=== PATIENT | male | born 1990 | race Caucasian/White ===

== ENCOUNTER → 2023-03-10 11:54 | Outpatient (CLI) | payer OTHER, MEDICAID, SELFPAY ==
[2023-03-10 20:23] LABS: Hepatitis B Surface Antigen NEGATIVE s/c (NEGATIVE)
[2023-03-10 20:39] LABS: HIV 1 & 2 Ab/Ag 4th Gen Combo NEGATIVE (NEGATIVE); Hep C Virus Ab w/Reflex Quant NEGATIVE s/c (NEGATIVE)
[2023-03-10 21:27] LABS: Urine N gonorrhoeae NOT DETECTED
[2023-03-10 21:32] LABS: Urine Chlamydia NOT DETECTED
[2023-03-13 08:51] LABS: HSV 2 IGG AB < 0.91 index (0.00-0.90); HSV1IGG < 0.91 index (0.00-0.90); RPR Screen Non Reactive (Non Reactive)
== END ==
PROVIDERS: PCP Physician Assistant; Visit Provider Physician Assistant
DX: L29.3 Anogenital pruritus, unspecified (principal); Z11.3 Encounter for screening for infections with a predominantly sexual mode of transmission
CPT/HCPCS: 86592; 86695; 86696; 86803; 87340; 87389; 87491; 87591

== ENCOUNTER → 2023-08-16 15:13 | Outpatient (CLI) | payer OTHER, SELFPAY ==
[2023-08-16 19:54] LABS: Alanine Aminotransferase 41 IU/L (<50); Albumin 4.4 g/dL (3.5-5.0); Albumin Globulin Ratio 1.4 (1.0-2.8); Alkaline Phosphatase 49 U/L (38-126); Aspartate Aminotransferase 37 IU/L (17-59); BUN Creatinine Ratio 14.2 (6-22); Bilirubin Total 0.6 mg/dL (0.2-1.3); Blood Urea Nitrogen 16 mg/dL (9-20); Calcium 9.6 mg/dL (8.4-10.2); Carbon Dioxide 27 mmol/L (22-32); Chloride 100 mmol/L (98-107); Estimated Glomerular Filt Rate > 60 mL/min (>60); Globulin 3.1 g/dL (1.7-4.1); Glucose 83 mg/dL (70-100); HEMOLYSIS < 15 (0-50); Potassium 4.2 mmol/L (3.4-5.1); Sodium 137 mmol/L (137-145); Total Protein 7.5 g/dL (6.3-8.2)
[2023-08-16 19:55] LABS: Add Manual Diff / Slide Review NO; Basophils Absolute Auto 0 /uL (0-100); Basophils Percent Auto 0.4 % (0-2); Eosinophils Absolute Auto 200 /uL (0-450); Eosinophils Percent Auto 2.8 % (2-4); Hematocrit 46.7 % (41-53); Lymphocytes Absolute Auto 1700 /uL (1100-4500); Lymphocytes Percent Auto 28.8 % (25-40); Mean Corpuscular HGB Conc 34.2 % (30-36); Mean Corpuscular Hemoglobin 30.2 PG (26-34); Mean Corpuscular Volume 88.1 fL (80-100); Monocytes Absolute Auto 400 /uL (0-900); Monocytes Percent Auto 7.5 % (3-14); Neutrophils Absolute Auto 3600 /uL (1500-7000); Neutrophils Percent Auto 60.5 % (50-75); Platelet Count 248 X10^3/uL (150-400); Red Cell Distribution Width 14.2 % (11.6-14.8); White Blood Cell Count 5.9 X10^3/uL (4.5-11.0)
== END ==
PROVIDERS: PCP Family Medicine; Visit Provider Family Medicine
DX: R10.31 Right lower quadrant pain (principal)
CPT/HCPCS: 80053; 85025

== ENCOUNTER → 2023-08-18 | Outpatient (CLI) | payer OTHER, SELFPAY | PROVIDERS: PCP Family Medicine; Referring Provider Family Medicine; Visit Provider Family Medicine | DX: Z23 Encounter for immunization (principal) | CPT/HCPCS: 90471; 90686 ==

== ENCOUNTER → 2023-08-19 10:09 | Outpatient (CLI) | payer OTHER, SELFPAY ==
--- NOTE | 2023-08-19 10:10 | DI.CT.S_ITS ---
PROCEDURE: CT ABDOMEN PELVIS W CON INDICATIONS: RLQ pain for 2 weeks, worse for 2- 3 days TECHNIQUE: After the administration of intravenous contrast, axial sections acquired from the lung bases to the pubic symphysis. Coronal and sagittal reformats were performed. For radiation dose reduction, the following was used: automated exposure control, adjustment of mA and/or kV according to patient size. COMPARISON: None. FINDINGS: Image quality: Excellent. Lung bases: Unremarkable. Heart: No significant findings. ABDOMEN: Liver: 2.0 cm lesion in segment 4B with increased attenuation (series 2, image 21). Gallbladder: No radiopaque stones. Biliary ducts: Unremarkable. Pancreas: Unremarkable. Spleen: Unremarkable. Adrenal Glands: Unremarkable. Kidneys and Ureters: Punctate nonobstructing left-sided nephrolithiasis. No hydronephrosis. Stomach and Bowel: Appendix is unremarkable. Colonic diverticulosis without evidence of diverticulitis. Peritoneum: No abnormal intraperitoneal fluid. No free air. Ventral Wall: No hernias. Abdominal Nodes: No retroperitoneal or mesenteric adenopathy by size criteria. Vessels: Aorta and inferior vena cava are normal in size. PELVIS: Pelvic Organs: Unremarkable. Bladder: Unremarkable. Pelvic Nodes: No enlarged lymph nodes. Miscellaneous: No hernias are seen. Bones: Unremarkable. IMPRESSION: No acute findings to explain the patient's right lower quadrant pain. Normal appendix. Colonic diverticulosis without evidence of diverticulitis. Hyperattenuating right hepatic lesion measuring 2.0 cm. Differential includes hemangioma, vascular perfusion defect, or other solid lesions. Recommend dedicated MRI with contrast (liver mass protocol) for further characterization. Dictated by: Nate Fernandez M.D. on 08/19/2023 at 10:51 Approved by: Nate Fernandez M.D. on 08/19/2023 at 10:55
== END ==
PROVIDERS: PCP Family Medicine; Referring Provider Family Medicine; Visit Provider Family Medicine
DX: R10.31 Right lower quadrant pain (principal); K57.90 Diverticulosis of intestine, part unspecified, without perforation or abscess without bleeding; K76.9 Liver disease, unspecified
CPT/HCPCS: 74177; Q9967

== ENCOUNTER → 2023-08-23 12:15 | Outpatient (CLI) | payer OTHER, SELFPAY ==
--- NOTE | 2023-08-23 12:16 | DI.MRI.S_ITS ---
PROCEDURE: MR ABDOMEN LIVER PROTOCOL INDICATIONS: 2 cm liver lesion found on CT during workup for RLQ pain TECHNIQUE: Coronal HASTE, axial 2D FLASH in- and [id number]; axial breath-hold T2 FSE. Dynamic axial VIBE during the administration of contrast; post-contrast coronal VIBE or 2D FLASH with fat saturation from the hepatic dome to the iliac crests. Optional diffusion weighted imaging and ADC may be performed. COMPARISON: [facility], CT, CT ABDOMEN PELVIS W CON, 08/19/2023, 10:17. FINDINGS: Lung bases: No basal pleural effusions. Liver: Redemonstrated structure in hepatic segment 4, 2.1 centimeters, not significantly changed since the recent CT. The finding is slightly hyperintense on T2 weighted images. On postcontrast images, there is nearly uniform arterial phase hyperenhancement, equivocally discontinuous. On subsequent post-contrast series, the finding is similar in attenuation to blood pool. Solid organs: Gallbladder is unremarkable. Biliary system is non dilated. Pancreas is normal in morphology. Spleen is normal in size and enhancement. No adrenal nodules. Both kidneys demonstrate normal size and enhancement, without hydronephrosis. Nodes and vessels: No retroperitoneal or mesenteric adenopathy by size criteria. Aorta and inferior vena cava are normal in size. Bowel and peritoneum: Unenhanced bowel loops are normal in caliber. No free fluid. IMPRESSION: No significant interval change in the previously demonstrated structure in hepatic segment 4. Enhancement characteristics of the finding are suggestive of a hemangioma, however the noncontrast signal characteristics of the finding are not typical for a hemangioma. Findings could represent an atypical hemangioma, other etiologies difficult to fully exclude. Could consider imaging follow-up to ensure stability, for example initial imaging follow-up in 3-6 months or other interval at clinical discretion. Dictated by: Jaylen Tong M.D. on 08/24/2023 at 9:14 Approved by: Jaylen Tong M.D. on 08/24/2023 at 9:35
== END ==
PROVIDERS: PCP Family Medicine; Referring Provider Family Medicine; Visit Provider Family Medicine
DX: K76.9 Liver disease, unspecified (principal); R10.31 Right lower quadrant pain
CPT/HCPCS: 74183; A9579

== ENCOUNTER → 2024-03-13 12:49 | Outpatient (CLI) | payer OTHER, SELFPAY ==
[2024-03-13 20:09] LABS: Add Manual Diff / Slide Review NO; Basophils Absolute Auto 0 /uL (0-100); Basophils Percent Auto 0.6 % (0-2); Eosinophils Absolute Auto 100 /uL (0-450); Eosinophils Percent Auto 2.7 % (2-4); Hematocrit 48.4 % (41-53); Hemoglobin 16.4 g/dL (13.5-17.5); Lymphocytes Absolute Auto 1600 /uL (1100-4500); Lymphocytes Percent Auto 31.3 % (25-40); Mean Corpuscular HGB Conc 33.8 % (30-36); Mean Corpuscular Hemoglobin 29.9 PG (26-34); Mean Corpuscular Volume 88.4 fL (80-100); Monocytes Absolute Auto 400 /uL (0-900); Monocytes Percent Auto 7.1 % (3-14); Neutrophils Absolute Auto 3000 /uL (1500-7000); Neutrophils Percent Auto 58.3 % (50-75); Platelet Count 247 X10^3/uL (150-400); Red Blood Cell Count 5.48 X10^6/uL (4.5-5.9); Red Cell Distribution Width 14.3 % (11.6-14.8); White Blood Cell Count 5.1 X10^3/uL (4.5-11.0)
[2024-03-13 20:26] LABS: HEMOLYSIS 39 (0-50); Iron 106 ug/dL (49-181)
[2024-03-13 20:40] LABS: Percent Iron Saturation 29 % (20-50); Total Iron Binding Capacity 369 ug/dL (261-462); Transferrin 292 mg/dL (206-381)
[2024-03-13 20:44] LABS: Alanine Aminotransferase 74 IU/L (<50); Albumin 4.8 g/dL (3.5-5.0); Albumin Globulin Ratio 1.7 (1.0-2.8); Alkaline Phosphatase 58 U/L (38-126); Aspartate Aminotransferase 55 IU/L (17-59); BUN Creatinine Ratio 15.1 (6-22); Bilirubin Total 0.6 mg/dL (0.2-1.3); Blood Urea Nitrogen 16 mg/dL (9-20); Calcium 9.6 mg/dL (8.4-10.2); Carbon Dioxide 27 mmol/L (22-32); Chloride 106 mmol/L (98-107); Estimated Glomerular Filt Rate > 60 mL/min (>60); Globulin 2.8 g/dL (1.7-4.1); Glucose 83 mg/dL (70-100); HEMOLYSIS < 15 (0-50); Magnesium 2.1 mg/dL (1.6-2.3); Potassium 4.6 mmol/L (3.4-5.1); Sodium 139 mmol/L (137-145); Total Protein 7.6 g/dL (6.3-8.2)
[2024-03-13 20:46] LABS: Erythrocyte Sedimentation Rate 2 MM/HR (0-15)
[2024-03-13 20:57] LABS: TSH w/ Reflex to FT4 1.99 uIU/mL (0.47-4.68)
[2024-03-13 21:29] LABS: Vitamin B12 319 pg/mL (239-931)
[2024-03-14 14:30] LABS: Alanine Aminotransferase 76 IU/L (<50)
== END ==
PROVIDERS: PCP Family Medicine; Visit Provider Family Medicine
DX: R53.83 Other fatigue (principal); I73.9 Peripheral vascular disease, unspecified; R25.2 Cramp and spasm
CPT/HCPCS: 80053; 82607; 83540; 83550; 83735; 84443; 84460; 85025; 85651; 86038

== ENCOUNTER → 2024-03-14 13:45 | Outpatient (CLI) | payer OTHER, SELFPAY ==
[2024-03-14 16:45] LABS: HIV 1 & 2 Ab/Ag 4th Gen Combo NEGATIVE (NEGATIVE); Hep C Virus Ab w/Reflex Quant NEGATIVE s/c (NEGATIVE)
== END ==
PROVIDERS: PCP Family Medicine; Visit Provider Family Medicine
DX: R74.01 Elevation of levels of liver transaminase levels (principal)
CPT/HCPCS: 86803; 87389